=== PATIENT | female | born 1995 | race Caucasian/White ===

== ENCOUNTER 2025-01-31 11:28 | Observation (INO) | payer BC, SELFPAY ==
[2025-01-31] VITALS (10 sets, daily range): BP systolic 111–113; BP diastolic 69–71; PULSE 80–88; RESP 16–98; TEMP 36.8; O2SAT 97–98; BMI 37.4
[2025-01-31] MEDS: ONDANSETRON INJ 2 MG/ML INJ 2 ML 4 MG IVP (13:00)
[2025-01-31] MEDS: RINGERS LACTATED 1000 ML 1,000 ML 999 ML IV (13:16)
[2025-01-31] MEDS: ACETAMINOPHEN 500 MG TABLET 1000 MG PO (13:17)
--- NOTE | 2025-01-31 14:33 | PD.LDPN ---
Documentation for date of: 01/31/25 OB Labor Progress Note Pelvic Exam Amniotic membrane status: Intact Contractions Monitor mode: External Contraction frequency: 0 Assessment and Plan Comments: Triage Note Patient is a 29yo with SIUP at 22+wk presenting to L&D for a few different symptoms. She states she is concerned she may have pre-eclampsia because she has had nausea, vomiting, headache and occasional blurry vision. No cough, congestion or sore throat. She notes no painful/regular ctx, no vaginal bleeding, no loss of fluid. Normal movement. She has had regular OB care with her OBGYN. She has history of delivery complicated by shoulder dystocia followed by a section for subsequent delivery. ROS negative other than what was described above. Vitals wnl, afebrile General: well developed, well nourished, no acute distress, conversant Cardiac: normal heart rate Lungs: breathing without distress Abdomen: soft, gravid, non-tender, no rebound or guarding Extremities: no edema of BLE + doptones [place]: no ctx pattern Assessment: Patient is a 29yo with SIUP at 22+wk with headache likely related to dehydration 2/2 nausea/vomiting. Possible gastritis. After 1L IVF, 4mg IV zofran and tylenol, she is feeling much better. Vitals wnl, benign exam. Plan: -Discussed with patient that she has normal bp's and her BECERRIL is related to dehydration, not pre-eclampsia -Rx zofran 4mg PO Q8hr prn n/v -Tylenol 1000mg PO Q6hr prn headache -Follow up at routine OB visit as scheduled -Discussed return precautions. Lolis Wilson MD
[2025-01-31] MEDS: FAMOTIDINE INJ 10 MG/ML VIAL 2 ML 20 MG IVP (14:34)
== END 2025-01-31 15:05 | disposition home or self-care (01) ==
PROVIDERS: Admitting Provider Obstetrics & Gynecology; Visit Provider Obstetrics & Gynecology
DX: O21.2 Late vomiting of pregnancy (principal); O99.282 Endocrine, nutritional and metabolic diseases complicating pregnancy, second trimester; E86.0 Dehydration; Z3A.22 22 weeks gestation of pregnancy
CPT/HCPCS: 59025; 59899; 96374; 96375; J2405; J3490; J7120; A9270

== ENCOUNTER 2025-04-22 17:26 | Observation (INO) | payer BC, SELFPAY ==
[2025-04-22] VITALS (20 sets, daily range): BP systolic 120; BP diastolic 82–88; PULSE 81–108; RESP 18–98; TEMP 36.9; O2SAT 82–99; BMI 37.0
[2025-04-22] MEDS: cefTRIAXone 1,000 MG, LIDOCAINE 1% 20 ML 2.1 ML IM (19:00)
[2025-04-22] MEDS: ACETAMINOPHEN 500 MG TABLET 1000 MG PO (19:00)
[2025-04-22 19:36] LABS: Collection Type, Urine Clean Catch; WBC,Urine 0 /hpf (0-5)
[2025-04-22 19:47] LABS: Bilirubin,Urine Negative (Negative); Blood,Urine Negative (Negative); Budding Yeast,Urine Present; Color,Urine Orange (Lt Yel-Yel); Glucose, Urine Negative (Negative); Ketones,Urine Negative (Negative); Leukocyte Esterase,Urine Negative (Negative); Nitrite,Urine Negative (Negative); PH,Urine 6.0 (5.0-7.0); Protein,Urine 1+ (Neg - Trace); RBC,Urine 21 /hpf (0-3); Specific Gravity,Urine 1.029 (1.001-1.035); Squamous Epithelial Cell,Urine 28 /hpf (0-5); Urobilinogen,Urine 2.0 mg/dL (0.0-1.0)
[2025-04-22 19:48] LABS: Clarity,Urine Turbid (Clear/Hazy)
[2025-04-22 20:16] LABS: FFN Specimen Descripton Clr Colrless Aqueous; Fetal Fibronectin Negative (Negative)
== END 2025-04-22 20:42 | disposition home or self-care (01) ==
PROVIDERS: Admitting Provider Specialist; Visit Provider Specialist
DX: O26.893 Other specified pregnancy related conditions, third trimester (principal); Z3A.34 34 weeks gestation of pregnancy; M54.9 Dorsalgia, unspecified
CPT/HCPCS: 59899; 81001; 82731; 87086; J0696; J3490; A9270

== ENCOUNTER 2025-05-11 15:16 | Observation (INO) | payer BC, SELFPAY ==
[2025-05-11] VITALS (20 sets, daily range): BP systolic 128; BP diastolic 66–86; PULSE 89–125; RESP 20–97; TEMP 36.7; O2SAT 97–100; BMI 37.4
[2025-05-11] MEDS: RINGERS LACTATED 1000 ML 1,000 ML 999 ML IV (15:35)
[2025-05-11] MEDS: RINGERS LACTATED 1000 ML 1,000 ML 100 ML IV (15:55)
[2025-05-11] MEDS: BETAMET ACET/BETAMET NA PH (Celestone) 6 MG/ML VIAL 12 MG IM (15:57)
[2025-05-11 16:12] LABS: Collection Type, Urine Clean Catch
[2025-05-11 16:50] LABS: Bacteria,Urine Rare; Bilirubin,Urine Negative (Negative); Blood,Urine Negative (Negative); Clarity,Urine Clear (Clear/Hazy); Color,Urine Yellow (Lt Yel-Yel); Culture Indicated,Urine Not Indicated; Glucose, Urine Negative (Negative); Ketones,Urine 1+ (Negative); Leukocyte Esterase,Urine Negative (Negative); Nitrite,Urine Negative (Negative); PH,Urine 6.0 (5.0-7.0); Protein,Urine 1+ (Neg - Trace); RBC,Urine 1 /hpf (0-3); Specific Gravity,Urine 1.027 (1.001-1.035); Squamous Epithelial Cell,Urine 5 /hpf (0-5); Urobilinogen,Urine Negative mg/dL (0.0-1.0); WBC,Urine 3 /hpf (0-5)
[2025-05-11 17:06] LABS: ROM Kit Exp Date# 04/11/28; ROM Kit Lot # 58106258; Swb Mxed in Solvent 1 min? Yes
[2025-05-11 17:07] LABS: ROM Swab Mixed By: SAUCT; Rupture of Fetal Membranes Negative (Negative)
--- NOTE | 2025-05-11 17:12 | PD.LDHP ---
Documentation for date of: 05/11/25 OB Labor/Induct. HPI History of Present Illness : 4 Para: 2 Term pregnancies: 2 pregnancies: 0 Living children: 2 History of Abortions: Spontaneous and Elective: 1 History of Vaginal deliveries: 1 History of sections: Yes (x1) History of : No WOOD: 06/03/25 Gestational Age (weeks): 36 Gestational Age (days): 5 History of present illness: H and P dictated on STAT line #9 in [employer] : [id number] History of Present Adequate Care: Yes Past Medical History Surgical History SURGICAL: Positive Section (x1) Meds Home Medications and Allergies Home Medications ?Medication ?Instructions ?Recorded ?Confirmed ?Type ferrous sulfate 325 mg (65 mg 325 mg PO QDAY 08/14/22 05/11/25 History iron) tablet aspirin 81 mg tablet,delayed 81 mg PO QDAY 01/31/25 05/11/25 History release vitamins 30 30 mg iron-10 1 cap PO QDAY 01/31/25 05/11/25 History mg iron-folic acid 1 mg-om3 capsule Allergies Allergy/AdvReac Type Severity Reaction Status Date / Time clindamycin Allergy Severe Swelling Verified 05/11/25 15:37 of Lip/Tongue/Throat nirmatrelvir (From Paxlovid Allergy Dry Mucus Verified 05/11/25 15:37 (EUA)) Membranes ritonavir (From Paxlovid Allergy Dry Mucus Verified 05/11/25 15:37 (EUA)) Membranes OB Exam Physical Exam Vital signs: Temp Pulse Resp BP Pulse Ox O2 Del Method 98.1 F 102 H 20 128/66 98 Room Air 05/11/25 15:22 05/11/25 15:22 05/11/25 15:22 05/11/25 15:22 05/11/25 16:57 05/11/25 15:22 OB Results Labs 05/11/25 15:35 Labs: Urine 05/11/25 Range/Units 15:10 Urine Color Yellow (Lt Yel-Yel) Urine Clarity Clear (Clear/Hazy) Urine pH 6.0 (5.0-7.0) Ur Specific [place] 1.027 (1.001-1.035) Urine Protein 1+ A (Neg - Trace) Urine Glucose (UA) Negative (Negative)
[2025-05-11 17:13] LABS: Basophils # (Auto) 0.0 Thou/mm3 (0.0-0.2); Basophils % (Auto) 0 % (0-2.5); Eosinophils # (Auto) 0.0 Thou/mm3 (0.0-0.5); Eosinophils % (Auto) 0 % (0-10); Hematocrit 33.2 % (36.0-46.0); Hemoglobin 10.7 g/dL (12.0-16.0); Immature Granulocytes Auto 0.09 Thou/mm3 (0.00-0.00); Lymphocytes # (Auto) 1.2 Thou/mm3 (1.0-4.8); Lymphocytes % (Auto) 12 % (10-50); Mean Corpuscular HGB Conc 32.2 g/dl (31.0-37.0); Mean Corpuscular Hemoglobin 25.9 pg (25.0-35.0); Mean Corpuscular Volume 80 fL (80-100); Monocytes # (Auto) 0.6 Thou/mm3 (0.0-0.8); Monocytes % (Auto) 6 % (0-12); Neutrophils # (Auto) 8.2 Thou/mm3 (1.8-7.7); Neutrophils % (Auto) 81 % (37-80); Nucleated Red Blood Cell # 0.00 Thou/mm3 (0.00-0.00); Nucleated Red Blood Cell % 0 /100 WBC (0); Platelet Count 229 Thou/mm3 (140-440); RDW Standard Deviation 47.8 fL (36.4-46.3); Red Blood Count 4.13 Miln/mm3 (4.00-5.20); White Blood Count 10.2 Thou/mm3 (3.6-11.0)
[2025-05-11 17:25] LABS: Syphilis Nonreactive (Nonreactive)
== END 2025-05-11 17:55 | disposition home or self-care (01) ==
PROVIDERS: Admitting Provider Specialist; Visit Provider Specialist
DX: O47.03 False labor before 37 completed weeks of gestation, third trimester (principal); Z3A.36 36 weeks gestation of pregnancy
CPT/HCPCS: 36415; 59025; 59899; 81001; 84112; 85025; 86780; 86850; 86900; 86901; 96372; J0702; J7120

== ENCOUNTER 2025-05-12 15:34 | Outpatient (CLI) | payer BC, SELFPAY ==
[2025-05-12] VITALS (7 sets, daily range): BP systolic 129; BP diastolic 70; PULSE 93–113; RESP 20–97; TEMP 37.1; O2SAT 96–98; BMI 37.5
[2025-05-12] MEDS: BETAMET ACET/BETAMET NA PH (Celestone) 6 MG/ML VIAL 12 MG IM (16:08)
== END 2025-05-12 16:30 | disposition home or self-care (01) ==
LOC: S4S1 15:35 → S4SX 15:35
PROVIDERS: Referring Provider Specialist; Visit Provider Specialist
DX: Z34.83 Encounter for supervision of other normal pregnancy, third trimester (principal); Z36.89 Encounter for other specified antenatal screening; Z3A.36 36 weeks gestation of pregnancy
CPT/HCPCS: 59025; 96372; J0702

== ENCOUNTER 2025-05-17 09:19 | Observation (INO) | payer BC, SELFPAY ==
[2025-05-17 09:32] VITALS: BP 123/76; PULSE 106
[2025-05-17 09:33] VITALS: BP 123/76; PULSE 106; RESP 18; RESP 99; TEMP 36.7
== END 2025-05-17 10:30 | disposition home or self-care (01) ==
PROVIDERS: Admitting Provider Specialist; Visit Provider Specialist
DX: O47.1 False labor at or after 37 completed weeks of gestation (principal); Z3A.37 37 weeks gestation of pregnancy
CPT/HCPCS: 59899

== ENCOUNTER 2025-05-20 05:27 | Inpatient (IN) | payer BC, SELFPAY ==
--- NOTE | 2025-05-11 17:37 | ESHP_ITS ---
RE: CHELSIE YOUSSEF : 1995 DATE OF ADMISSION: 05/20/2025 HISTORY OF PRESENT ILLNESS: This is a 29-year-old 4, para 2-0-1-2, with due date of 06/03 with intrauterine at 38 weeks and 0 days, who presents for repeat delivery. Patient denies any leaking or bleeding. She reports normal movement. Her ultrasound on 05/12 showed estimated weight 3668 g with growth at the 85th percentile with an KHANH of 27.4. The patient has been followed throughout the by maternal medicine and had normal MFM anatomy scans as well as a normal echocardiogram. Echo was performed due to a history of two children with congenital anomalies. Both of her sons have cerebral palsy. Her first child was born via spontaneous vaginal delivery and suffered a shoulder dystocia with a weight of 9 pounds 4 ounces. He had a transient brachial plexus injury and subsequently was diagnosed with cerebral palsy, but only manifested as muscle weakness. Her first son was also diagnosed with ventricular septal defect after and it resulted in spontaneous closure. Her second child wasborn via delivery and has a right hemiplegic cerebral palsy, right-sided muscle weakness, and congenital hypotonia. 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 Her second child had normal chromosomal microarray and CK levels. Her first son was diagnosed with ventricular septal defect after and it resulted in spontaneous closure. The patient elects to undergo a repeat delivery. She had a hemorrhage in her first delivery where the hemoglobin dropped from 9 to 6. She did not have a blood transfusion. Her ultrasound by MFM does not show any evidence of placenta accreta spectrum. Placenta is posterior. She elects voluntary sterilization ALLERGIES: PAXLOVID AND METRONIDAZOLE. PAST MEDICAL HISTORY: Mild systolic hypertension, gastroenteritis, urinary tract infection, elevated liver enzymes, shoulder dystocia, hemorrhage, polyhydramnios. MEDICATIONS: 1. multivitamin 1 p.o. daily. 2. Aspirin 81 mg 1 p.o. daily. SOCIAL HISTORY: She denies any alcohol, drug use, or smoking. FAMILY HISTORY: Cerebral palsy in both sons. Breast cancer, lung cancer, diabetes, stroke. OBSTETRICAL HISTORY: In 2019, 41-week normal vaginal delivery, 9 pounds 4 ounces male, complicated by shoulder dystocia with transient brachial plexus injury with subsequent cerebral palsy with muscle weakness and perimembranous ventricular septal defect with spontaneous closure. 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 REVIEW OF SYSTEMS: She denies any chest pain, palpitations, cough, fever, flank pain, shortness of breath, or lower extremity pain. PHYSICAL EXAMINATION: VITAL SIGNS: Blood pressure 122/75, heart rate 88, respirations 18, temperature 98.2, weight 237 pounds. HEENT: Oropharynx and sclerae clear. LUNGS: Clear to auscultation bilaterally. HEART: Regular rate and rhythm. ABDOMEN: Fundus 38 cm. PELVIC: See RN notes. EXTREMITIES: Nontender. SKIN: No gross rashes or lesions. NEUROLOGIC: No focal deficit. ASSESSMENT: Intrauterine at 38 weeks and 0 days with mild systolic hypertension on no medications, previous delivery, elects repeat delivery. Multiparity, desires voluntary sterilization. Polyhydramnios. PLAN: delivery and a bilateral tubal ligation. Informed consent was obtained. The patient was made aware of the risks, complications, alternatives and benefits of the proposed procedure and she agrees. DT: 17:11:31 TT: 17:35:00 Ref: [id number] - TID: [id number] [facility]
[2025-05-18 15:25] LABS: Basophils # (Auto) 0.1 Thou/mm3 (0.0-0.2); Basophils % (Auto) 0 % (0-2.5); Eosinophils # (Auto) 0.1 Thou/mm3 (0.0-0.5); Eosinophils % (Auto) 1 % (0-10); Hematocrit 33.8 % (36.0-46.0); Hemoglobin 10.8 g/dL (12.0-16.0); Immature Granulocytes Auto 0.12 Thou/mm3 (0.00-0.00); Lymphocytes # (Auto) 1.6 Thou/mm3 (1.0-4.8); Lymphocytes % (Auto) 14 % (10-50); Mean Corpuscular HGB Conc 32.0 g/dl (31.0-37.0); Mean Corpuscular Hemoglobin 25.7 pg (25.0-35.0); Mean Corpuscular Volume 80 fL (80-100); Monocytes # (Auto) 0.8 Thou/mm3 (0.0-0.8); Monocytes % (Auto) 7 % (0-12); Neutrophils # (Auto) 9.1 Thou/mm3 (1.8-7.7); Neutrophils % (Auto) 77 % (37-80); Nucleated Red Blood Cell # 0.00 Thou/mm3 (0.00-0.00); Nucleated Red Blood Cell % 0 /100 WBC (0); Platelet Count 240 Thou/mm3 (140-440); RDW Standard Deviation 47.2 fL (36.4-46.3); Red Blood Count 4.21 Miln/mm3 (4.00-5.20); White Blood Count 11.8 Thou/mm3 (3.6-11.0)
[2025-05-18 15:39] LABS: INR 0.9 (0.9-1.3); Partial Thromboplastin Time 24.0 Seconds (22.0-36.0); Prothrombin Time 10.0 Seconds (9.0-12.2)
[2025-05-18 15:42] LABS: Alanine Aminotransferase 51 U/L (10-49); Albumin, Serum 4.1 gm/dL (3.5-5.0); Albumin/Globulin Ratio 1.6 (1.2-2.2); Alkaline Phosphatase 128 U/L (46-116); Anion Gap 9 (7-16); Aspartate Amino Transferase 36 U/L (0-34); BUN/Creatinine Ratio 10 Ratio (12-20); Bilirubin,Total 0.7 mg/dL (0.3-1.2); Blood Urea Nitrogen 7 mg/dL (9-23); Calcium 8.9 mg/dL (8.3-10.6); Calcium (Corrected) 8.9 mg/dL (8.5-10.1); Carbon Dioxide 25.3 mMol/L (20.0-31.0); Chloride 106 mMol/L (98-107); Creatinine (Component) 0.7 mg/dL (0.6-1.3); Globulin 2.6 gm/dL (2.3-3.5); Glucose 93 mg/dL (74-106); Osmolality,Calculated 277 (275-295); Potassium 4.1 mMol/L (3.4-5.1); Sodium 140 mMol/L (136-145); Total Protein 6.7 gm/dL (5.7-8.2); eGFR > 60 See Note
[2025-05-18 16:06] LABS: Syphilis Nonreactive (Nonreactive)
[2025-05-20] VITALS (18 sets, daily range): BP systolic 99–127; BP diastolic 62–93; PULSE 80–113; RESP 14–22; TEMP 36.4–36.9; O2SAT 96–100; BMI 37.3; BMI 37.4
[2025-05-20 07:00] LABS: Amphetamine/Metham Scrn,Ur OB Negative (Negative); Benzoylecgonine Screen, Ur OB Negative (Negative); Opiate Screen,Urine OB Negative (Negative); THC Screen,Urine OB Negative (Negative)
[2025-05-20] MEDS: METOCLOPRAMIDE INJ 5 MG/ML VIAL 2 ML 10 MG IVP (07:26)
[2025-05-20] MEDS: VANCOMYCIN/NS 1 GM IVPB 200 ML IV (07:26)
[2025-05-20] MEDS: FAMOTIDINE INJ 10 MG/ML VIAL 2 ML 20 MG IV (07:26)
--- NOTE | 2025-05-20 07:39 | PD.ADDHP ---
Addendum History & Physical Addendum Date of report being addended: 05/20/25 Narrative: Pt reexamined and H and P remains unchanged.
--- NOTE | 2025-05-20 07:48 | PD.LDDS ---
DS: Providers Provider Date of admission: 05/20/25 05:27 Primary care physician: Endy Borjas MD Admitting Provider: Endy Borjas MD Attending Provider on Admission: Endy Borjas MD Attending Provider on DC: Endy Borjas MD Discharging Provider: Endy Borjas MD DS: Diagnosis Problem List Completed Was Problem List Reviewed/Reconciled?: Yes Summary/Hosp Course Peripartum Data Procedures: Procedures Operation Date: 05/20/25 07:45 <No data on this case meets the specified criteria> Time Spent with Patient Time attestation: Total time spent providing and/or coordinating discharge services: Exam Vital Signs Temp Pulse Resp BP Pulse Ox 97.6 F 113 H 18 116/74 97 05/20/25 06:05 05/20/25 06:05 05/20/25 06:05 05/20/25 06:05 05/20/25 06:05 Discharge Plan Plan Patient Disposition: HOME (Self Care) Patient condition on transfer: Stable Prescriptions/Referrals Prescriptions/Med Rec: No Action ferrous sulfate 325 mg (65 mg iron) tablet 325 mg PO QDAY Patient Comments: Take 1 tablet by mouth every other day PNV [id number] 30 mg iron-10 mg iron-1 mg capsule 1 cap PO QDAY Referrals: Endy Borjas MD [Primary Care Provider, [employer] INSTRUCTOR] Patient/Caregiver Discharge Instructions Discharge Activity: activity as tolerated Other Discharge Activity Instructions:: Follow up office 1 week. Education Materials: Breast Care After , After a , C Section Dc Print Language: Citizen Of [place] Stand Alone Forms: Lili Award Info., Patient Portal Info Letter Discharge Order Discharge Orders: Discharge (Routine); Ordered 05/22/25 Ordered By: Endy Borjas Planned Discharge Date 05/22/25
--- NOTE | 2025-05-20 07:49 | PD.GYNPROC ---
Operative Note - CAISSON WORKER Procedure Date of procedure: 05/20/25 Procedure Performed: Repeat low-transverse section via Pfannenstiel skin incision Bilateral salpingectomy Indication: Intrauterine at 38 weeks and 0 days Previous delivery elects repeat delivery Multiparity desires voluntary sterilization Systolic hypertension Pre-Op diagnosis: Intrauterine at 38 weeks and 0 days Previous delivery elects repeat delivery Multiparity desires voluntary sterilization Systolic hypertension Post-Op diagnosis: Intrauterine at 38 weeks and 0 days Previous delivery elects repeat delivery Multiparity desires voluntary sterilization Systolic hypertension Anesthesia type: Spinal Procedure description: After proper informed consent was obtained and the patient was made aware of the risks, complications, alternatives and benefits of the proposed procedure she was taken to the operating room where she underwent induction of spinal anesthesia. She was prepped and draped in the usual sterile fashion. A timeout was performed.? A Pfannenstiel skin incision was made with the scalpel and carried through to the underlying layer of fascia with the Bovie. The fascia was nicked in the midline incision and the incision was extended bilaterally with the Bovie. The inferior aspect of the fascial incision was grasped with Pretty clamps elevated and the underlying rectus muscle dissected off with the Bovie. The superior aspect the fascial incision was grasped with Pretty clamps elevated and the underlying rectus muscle dissected off with the Bovie. The rectus muscles were in the midline. The peritoneum was grasped between 2 Ramon clamps and entered sharply with the Metzenbaum scissors. The peritoneum was extended superiorly and inferiorly with good visualization of the bladder. The vesicouterine peritoneum was incised transversely and the bladder flap created digitally. A [place] blade was inserted. A low transverse incision was made in the uterus with a scapel and the incision was extended digitally. The infant's head delivered and the mouth and nose were suctioned with the bulb suction. The shoulder and body delivered atraumatically. The cord was clamped after 30 second delayed cord clamping and the cord was cut.? The male was handed off to the waiting Pediatric staff, cord blood was collected for lab testing. The placenta was removed complete and intact. The uterus was exteriorized and cleared of all clots and debris. The uterine incision was closed with #1-0 chromic catgut suture in a running interlocking fashion. A second layer of the same suture was used to imbricate the first layer and obtain excellent hemostasis. The vesicouterine peritoneum was closed with 2-0 chromic catgut suture in a running fashion. Attention was turned to the left fallopian tube which was grasped at the fimbriated end with a [place] clamp and using the Enseal X-1 large jaw a left salpingectomy was performed. Hemostasis achieved. Attention was turned to the right fallopian tube which was grasped at the fimbriated end with a [place] clamp and using the Enseal X-1 large jaw a left salpingectomy was performed. Hemostasis achieved. The firm uterus was returned to the abdomen. The gutters were cleared of all clots and debris. The adnexae were revisualized along with the lower uterine segment and all was hemostatic. The peritoneum was closed with 0 chromic catgut suture in running fashion. The rectus muscle was closed with 0 chromic catgut suture. The fascia was closed with 0 Vicryl beginning at each angle and ending in the center in a running fashion. The subcutaneous tissue was irrigated with warmed normal saline solution and found to be hemostatic. The subcutaneous tissue was closed with 2-0 chromic catgut suture in a running fashion. The skin was closed with 4-0 Monocryl. A Dermabond [place]ineo dressing was applied and a sterile pressure dressing was applied.? She tolerated the procedure well. Counts were correct. I discussed with the patient the nature of her condition, intraoperative findings and expectation for recovery all questions answered. Specimen: right tube, left ovary and other (placenta) Findings: Live male Apgars 8 and 9 Weight 7lbs 8oz Amniotic fluid clear: Polyhydramnios Uterus ovaries fallopian tubes grossly within normal limits Cephalic Occiput Posterior Placenta removed complete intact Complications: none Surgical staff Milly Chung, DEMARCUS Lucio, EDNA Borjas Operation Date: 05/20/25 07:45 <No data on this case meets the specified criteria> Diagnosis Discharge Diagnosis (1) delivery delivered: Status: Acute (2) Sterilization: Status: Acute Problem List Completed Was Problem List Reviewed/Reconciled?: Yes
--- NOTE | 2025-05-20 08:51 | PD.LDDELS ---
Data (Rodriguez) Data Hx Section: Yes (X1) : 4 Term: 3 : 0 Livin Abortions: Spontaneous & Theraputic: 1 Delivery Data (Rodriguez) Labor Data Induction/Augmentation Agent: None ROM date: 05/20/25 Amniotic membrane rupture type: Artificial Amniotic fluid description: Clear Delivery Data EDC: 06/03/25 EDC calculated by:: LMP/early US confirmation [place] delivery date: 05/20/25 [place] delivery time: 08:13 Gestational age (weeks): 38 Gestational age (days): 0 Placenta delivery date: 05/20/25 Placenta delivery time: 08:13 Delivered by: Endy Borjas Delivery nurse: Bella Wolff RN [facility] nurse: John CASAS RN Marketing Content Coordinator at delivery: No Support person(s) at delivery: fob Delivery Method Delivery method: Low Transverse Presentation: Vertex position: OP Anesthesia Type Anesthesia Type: Spinal Anesthesia type: Spinal Placenta Placenta delivery description: Manual Removal Placenta Disposition: Sent to Pathology Cord blood sent to lab: Yes cord blood collection: Cord Blood Type, Arterial Cord Blood Gas and Venous Cord Blood Gas Episiotomy Episiotomy description: None EBL Estimated blood loss (ml): 600 Umbilical Cord cord description: 3 Vessels Additional Procedures Bilateral Salpingectomy Complications Complications: None [place] Data (Rodriguez) Data order: 1 [place]'s gender: Male Identification band number: [id number] weight (gms): 7 lb 8.284 oz Weight (pounds): 7 lbs and 8.3 ozs 1 minute: 8 5 minutes: 9
--- NOTE | 2025-05-20 09:10 | PC.NURSE ---
#1 IV pitocin started in OB OR by Rambo Lucio CYBER FORENSICS ANALYST more than 900ml in IV bag when entering room 460
[2025-05-20] MEDS: KETOROLAC INJ 30 MG/ML VIAL IVP ×2 (10:39→17:58)
[2025-05-20] MEDS: DOCUSATE SOD 100 MG CAPSULE PO (10:40)
[2025-05-20 13:56] LABS: Basophils # (Auto) 0.0 Thou/mm3 (0.0-0.2); Basophils % (Auto) 0 % (0-2.5); Eosinophils # (Auto) 0.0 Thou/mm3 (0.0-0.5); Eosinophils % (Auto) 0 % (0-10); Hematocrit 29.3 % (36.0-46.0); Hemoglobin 9.0 g/dL (12.0-16.0); Immature Granulocytes Auto 0.07 Thou/mm3 (0.00-0.00); Lymphocytes # (Auto) 1.2 Thou/mm3 (1.0-4.8); Lymphocytes % (Auto) 11 % (10-50); Mean Corpuscular HGB Conc 30.7 g/dl (31.0-37.0); Mean Corpuscular Hemoglobin 24.8 pg (25.0-35.0); Mean Corpuscular Volume 81 fL (80-100); Monocytes # (Auto) 0.6 Thou/mm3 (0.0-0.8); Monocytes % (Auto) 5 % (0-12); Neutrophils # (Auto) 9.0 Thou/mm3 (1.8-7.7); Neutrophils % (Auto) 83 % (37-80); Nucleated Red Blood Cell # 0.00 Thou/mm3 (0.00-0.00); Nucleated Red Blood Cell % 0 /100 WBC (0); Platelet Count 190 Thou/mm3 (140-440); RDW Standard Deviation 47.8 fL (36.4-46.3); Red Blood Count 3.63 Miln/mm3 (4.00-5.20); White Blood Count 10.8 Thou/mm3 (3.6-11.0)
[2025-05-20] MEDS: HYDROcodone/APAP 5/325 TABLET 1 TAB PO ×2 (14:17→21:13)
[2025-05-21] MEDS: HYDROcodone/APAP 5/325 TABLET 2 TAB PO ×3 (01:53→20:22)
[2025-05-21 04:45] VITALS: BP 128/83; PULSE 100; RESP 15; TEMP 36.8; O2SAT 98
[2025-05-21] MEDS: IBUPROFEN TAB 400 MG TABLET 800 MG PO ×2 (04:45→12:15)
--- NOTE | 2025-05-21 05:56 | ESPR_ITS ---
RE: CHELSIE YOUSSEF : 1995 DATE OF SERVICE: 05/21/2025 SUBJECTIVE: Postop day #1. Patient denies any problem or complaint. She is voiding and ambulating and tolerating a regular diet and passing flatus. She denies any excessive vaginal bleeding. She denies any dizziness or lightheadedness. She denies any chest pain, palpitation, shortness of breath, or lower extremity pain. OBJECTIVE: VITAL SIGNS: Blood pressure 128/83, heart rate 100, respirations 15, temperature is 98.2, pulse ox is 98% on room air. LUNGS: Clear to auscultation bilaterally. HEART: Tachycardic, but regular rhythm. ABDOMEN: Dressing dry and intact. Fundus is firm. EXTREMITIES: Non-tender. Hemoglobin pre-delivery is 10.8, post-delivery is 9.0. ASSESSMENT: Post-op day #1. Status post delivery and bilateral salpingectomy. Systolic hypertension with stable blood pressures not requiring any antihypertensives. PLAN: Remove dressing, encourage ambulation, discontinue IV, support, possible discharge home tomorrow. DT: 05:23:53 TT: 05:54:00 Ref: [id number] - TID: [id number]
[2025-05-21 08:00] VITALS: BP 116/77; PULSE 96; RESP 16; TEMP 36.7; O2SAT 98
[2025-05-21] MEDS: DOCUSATE SOD 100 MG CAPSULE PO (08:58)
[2025-05-21] MEDS: ENOXAPARIN SOD INJ 40 MG/0.4 ML SYRINGE SC (08:59)
[2025-05-21 12:00] VITALS: BP 122/78; PULSE 88; RESP 17; TEMP 36.6; O2SAT 97
[2025-05-21] MEDS: HYDROcodone/APAP 5/325 TABLET 1 TAB PO (15:43)
[2025-05-21 20:00] VITALS: BP 125/83; PULSE 98; RESP 16; TEMP 36.8; O2SAT 98
[2025-05-22] MEDS: HYDROcodone/APAP 5/325 TABLET 1 TAB PO ×2 (02:27→07:19)
[2025-05-22 03:38] VITALS: BP 123/80; PULSE 98; RESP 16; TEMP 36.8; O2SAT 97
--- NOTE | 2025-05-22 05:50 | ESPR_ITS ---
RE: CHELSIE YOUSSEF : 1995 DATE OF SERVICE: 05/22/2025 SUBJECTIVE: Post op day number 2. Patient denies any problem or complaints. Vital signs are stable. She is afebrile. Incision clear and intact. Extremities nontender. ASSESSMENT AND PLAN: Post op day number 2 status post delivery and bilateral salpingectomy. Stable blood pressures. Discharge home. Discharge instructions given. Follow up in the office in 1 week. DT: 05:20:18 TT: 05:49:00 Ref: [id number] - TID: [id number]
[2025-05-22 08:40] VITALS: BP 114/80; PULSE 98; RESP 18; TEMP 36.8; O2SAT 97
[2025-05-22] MEDS: DOCUSATE SOD 100 MG CAPSULE PO (08:51)
[2025-05-22] MEDS: ENOXAPARIN SOD INJ 40 MG/0.4 ML SYRINGE SC (08:52)
[2025-05-22] MEDS: IBUPROFEN TAB 400 MG TABLET 800 MG PO ×2 (09:50)
--- NOTE | 2025-05-22 11:29 | PC.SS ---
TIPPLE MECHANIC conducted bedside contact with the patient to address nursing referral indicating patient was positive for THC during .? Toxicology screening at admission negative.? TIPPLE MECHANIC introduced self and role.? TIPPLE MECHANIC discussed basis of referral.? Patient confirmed recreational use of THC.? Patient stated that use was to address symptoms of .? Patient states not planning to continue use of THC.? Patient informed TIPPLE MECHANIC that sifter operator was aware of THC use.? CBD form utilized by the patient.? , Anthony; is the patient?s third child.? Infant was delivered via .? Patient plans of .? OB services provided by Dr. Borjas.? Patient confirms consistency with OB appointments.? FOB, Geovany Blas will be involved in the rearing of the infant.? Patient is aligned with WIC.? Patient is not receiving SNAP nor TANF.? Patient denies history of alcohol/drug abuse.? Patient denies CWS intervention.? Patient denies episodes of domestic violence.? Patient denies possessing a history of mental health, reports no current possession of depression or anxiety.? Patient has access to appropriate supplies and equipment; to include a car seat.? FOB will provide transportation upon discharge.? Patient describes possessing support system consisting of FOB?s parents and extended family.? TIPPLE MECHANIC provided the patient with community resources to include Parenting Network and Warm Line.? No further intervention required at this time, social media intern will be available to address any further concerns.? TIPPLE MECHANIC updated bedside nurse.?
== END 2025-05-22 11:53 | disposition home or self-care (01) | DRG 785 ==
LOC: S4SX 07:32 → S4NX 07:39
PROVIDERS: Admitting Provider Specialist; PCP Specialist; Visit Provider Specialist
PROC: 0UL70ZZ Occlusion of Bilateral Fallopian Tubes, Open Approach (ICD-10-PCS; CPT 59514; principal; 2025-05-20 07:30)
DX: O34.211 Maternal care for low transverse scar from previous cesarean delivery (principal); Z37.0 Single live birth; Z3A.38 38 weeks gestation of pregnancy; Z30.2 Encounter for sterilization; O40.3XX0 Polyhydramnios, third trimester, not applicable or unspecified
CPT/HCPCS: 36415; 80053; 80307; 85025; 85610; 85730; 86780; 86850; 86900; 86901; 86923; A4217; A4649; J1650; J1885; J2274; J2371; J2590; J2765; J3010; J3373; J3490; A9270; J2270